=== PATIENT | female | born 1935 | race Caucasian/White ===

== ENCOUNTER 2017-01-21 13:01 | Observation (INO) | payer OTHER ==
[2017-01-21] MEDS ORDERED: ASPIRIN EC 325 MG TAB PO ONE ×2 (13:04→13:29)
[2017-01-21] MEDS ORDERED: diphenhydrAMINE 25 MG CAP PO ONE ×2 (13:04→13:28)
[2017-01-21] MEDS ORDERED: NS 1,000 ML IV ONE (13:04)
[2017-01-21] MEDS ORDERED: DIAZEPAM 5 MG TAB PO ONE (13:04)
[2017-01-21] MEDS ORDERED: FAMOTIDINE 20 MG TAB PO ONE (13:04)
[2017-01-21] MEDS ORDERED: DIAZEPAM 5 MG TAB ONE (13:29)
[2017-01-21] MEDS ORDERED: FAMOTIDINE 20 MG TAB ONE (13:29)
--- NOTE | 2017-01-21 13:30 | CPEKG ---
Heart Rate: 55 RR Interval: 1091 QRSD Interval: 82 QT Interval: 452 QTC Interval: 433 QRS [place]: -14 T Wave [place]: -5 EKG Severity - ABNORMAL ECG - EKG Impression: ACCELERATED JUNCTIONAL ESCAPE RHYTHM EKG Impression: BORDERLINE T ABNORMALITIES, DIFFUSE LEADS Electronically Signed By: Bahman Lomas 21-Jan-2017 21:39:35
--- NOTE | 2017-01-21 13:57 | CPEKG ---
Heart Rate: 57 RR Interval: 1053 QRSD Interval: 94 QT Interval: 464 QTC Interval: 452 QRS [place]: 3 T Wave [place]: 34 EKG Severity - ABNORMAL ECG - EKG Impression: ACCELERATED JUNCTIONAL ESCAPE RHYTHM EKG Impression: BORDERLINE T ABNORMALITIES, ANT-LAT LEADS Electronically Signed By: Bahman Lomas 21-Jan-2017 21:39:47
[2017-01-21 14:02] LABS: % IMMATURE GRANULYOCYTES 0.4 % (0.0-1.1); ABSOLUTE IMMATURE GRANULOCYTES 0.03 10^3/uL (0.00-0.10); ADD DIFF? NO; ADD MORPH? NO; ADD SCAN? NO; ATYPICAL LYMPHOCYTE FLAG 10 (0-99); FRAGMENT RBC FLAG 0 (0-99); HEMOGLOBIN 13.6 g/dL (12.6-16.3); LEFT SHIFT FLG 0 (0-99); LIPEMIA HEMOLYSIS FLAG 90 (0-99); MEAN CELL HEMOGLOBIN 30.1 pg (27.9-34.1); MEAN CELL HEMOGLOBIN CONCENTR. 34.9 g/dL (32.4-36.7); MEAN CELL VOLUME 86.3 fL (81.5-99.8); MEAN PLATELET VOLUME 9.7 fL (8.7-11.7); PLATELET CLUMPS FLAG 0 (0-99); PLATELET COUNT 260 10^3/uL (150-400); RED BLOOD CELL COUNT 4.52 10^6/uL (4.18-5.33); RED CELL DISTRIBUTION WIDTH 13.4 % (11.5-15.2)
[2017-01-21 14:17] LABS: ANION GAP 14 mEq/L (8-16); CALCIUM 9.9 mg/dL (8.5-10.4); CARBON DIOXIDE 21 mEq/l (22-31); CHLORIDE 108 mEq/L (97-110); CHOLESTEROL 193 mg/dL (140-220); CHOLESTEROL/HDL RATIO 3.45 RATIO (1.00-4.44); CREATININE 1.5 mg/dL (0.6-1.0); GLOMERULAR FILTRATION RATE 33; GLUCOSE 119 mg/dL (70-100); HIGH DENSITY LIPOPROTEIN 56 mg/dL (40-85); LDL/HDL RATIO 2.04 RATIO (1.00-3.22); LOW DENSITY LIPOPROTEIN 114 mg/dL (80-100); MAGNESIUM 1.6 mg/dL (1.6-2.3); NON-HIGH DENSITY LIPOPROTEIN 137 mg/dL (90-129); POTASSIUM 3.6 mEq/L (3.5-5.2); SODIUM 143 mEq/L (134-144); TRIGLYCERIDE 115 mg/dL (35-135); VERY LOW DENSITY LIPOPROTEINS 23 mg/dL (8-25)
[2017-01-21 14:18] LABS: INR 1.01 (0.83-1.16); PROTIME(PATIENT) 13.2 SEC (12.0-15.0)
[2017-01-21] MEDS ORDERED: fentaNYL 100 MCG/2 ML INJ ONE ×2 (15:37→16:30)
[2017-01-21] MEDS ORDERED: MIDAZOLAM 2 MG/2 ML VIAL ONE ×2 (15:37→16:42)
[2017-01-21] MEDS ORDERED: LIDOCAINE 1% 300 MG/30 ML SDV ONE (15:37)
[2017-01-21] MEDS ORDERED: IOPAMIDOL (ISOVUE-370) 150 ML BTL IV ONE (15:38)
[2017-01-21] MEDS ORDERED: BIVALIRUDIN 250 MG/5 ML VIAL IV ONE (16:13)
[2017-01-21] MEDS ORDERED: CLOPIDOGREL BISULFATE 75 MG TAB ONE (17:17)
[2017-01-21] MEDS ORDERED: NITROGLYCERIN 0.4 MG BTL SL PRN (17:23)
[2017-01-21] MEDS ORDERED: CLOPIDOGREL BISULFATE 75 MG TAB PO ONE (17:23)
[2017-01-21] MEDS ORDERED: TEMAZEPAM 15 MG CAP PO PRN (17:23)
[2017-01-21] MEDS ORDERED: ATROPINE SULFATE 1 MG/10 ML SYR IVP PRN (17:23)
[2017-01-21] MEDS ORDERED: ONDANSETRON 4 MG/2 ML VIAL IVP PRN (17:23)
[2017-01-21] MEDS ORDERED: NS 1,000 ML IV SCH (17:30)
--- NOTE | 2017-01-21 17:54 | CPEKG ---
Heart Rate: 48 RR Interval: 1250 P-R Interval: 217 QRSD Interval: 84 QT Interval: 484 QTC Interval: 433 P [place]: 0 QRS [place]: 10 T Wave [place]: 59 EKG Severity - BORDERLINE ECG - EKG Impression: SINUS BRADYCARDIA EKG Impression: ATRIAL PREMATURE COMPLEX EKG Impression: MINIMAL ST DEPRESSION, LATERAL LEADS EKG Impression: FIRST DEGREE AVB Electronically Signed By: Bahman Lomas 21-Jan-2017 21:40:30
[2017-01-21] MEDS ORDERED: CARVEDILOL 3.125 MG TAB PO SCH (18:00)
[2017-01-22 04:54] LABS: % IMMATURE GRANULYOCYTES 0.2 % (0.0-1.1); ABSOLUTE IMMATURE GRANULOCYTES 0.02 10^3/uL (0.00-0.10); ADD DIFF? NO; ADD MORPH? NO; ADD SCAN? NO; ATYPICAL LYMPHOCYTE FLAG 0 (0-99); FRAGMENT RBC FLAG 0 (0-99); HEMATOCRIT 34.6 % (38.0-47.0); LEFT SHIFT FLG 0 (0-99); LIPEMIA HEMOLYSIS FLAG 90 (0-99); MEAN CELL HEMOGLOBIN 29.9 pg (27.9-34.1); MEAN CELL HEMOGLOBIN CONCENTR. 34.7 g/dL (32.4-36.7); MEAN CELL VOLUME 86.1 fL (81.5-99.8); MEAN PLATELET VOLUME 9.9 fL (8.7-11.7); PLATELET CLUMPS FLAG 0 (0-99); PLATELET COUNT 227 10^3/uL (150-400); RED BLOOD CELL COUNT 4.02 10^6/uL (4.18-5.33); RED CELL DISTRIBUTION WIDTH 13.4 % (11.5-15.2)
[2017-01-22 05:06] LABS: ANION GAP 12 mEq/L (8-16); CALCIUM 9.7 mg/dL (8.5-10.4); CARBON DIOXIDE 24 mEq/l (22-31); CHLORIDE 105 mEq/L (97-110); CREATININE 1.3 mg/dL (0.6-1.0); GLOMERULAR FILTRATION RATE 39; GLUCOSE 120 mg/dL (70-100); POTASSIUM 3.5 mEq/L (3.5-5.2); SODIUM 141 mEq/L (134-144)
[2017-01-22 08:18] VITALS: BP 118/68; PULSE 53; RESP 17; TEMP 97.6; O2SAT 95
[2017-01-22] MEDS ORDERED: LEVOTHYROXINE 75 MCG TAB PO SCH (08:30)
[2017-01-22] MEDS ORDERED: PANTOPRAZOLE SODIUM 40 MG TAB PO SCH (09:00)
[2017-01-22] MEDS ORDERED: ASPIRIN EC 325 MG TAB PO SCH (09:00)
[2017-01-22] MEDS ORDERED: HYDROCHLOROTHIAZIDE 25 MG TAB PO SCH (09:00)
[2017-01-22] MEDS ORDERED: CLOPIDOGREL BISULFATE 75 MG TAB PO SCH (09:00)
[2017-01-22] MEDS ORDERED: ATORVASTATIN CALCIUM 20 MG TAB PO SCH (09:00)
[2017-01-22] MEDS ORDERED: ESCITALOPRAM OXALATE 10 MG TAB PO SCH (09:00)
[2017-01-22] MEDS ORDERED: METOPROLOL SUCCINATE XR 100 MG TAB PO SCH (09:00)
[2017-01-22] MEDS ORDERED: FAMOTIDINE 20 MG TAB PO SCH (09:00)
--- NOTE | 2017-01-22 09:27 | CPEKG ---
Heart Rate: 54 RR Interval: 1111 P-R Interval: 248 QRSD Interval: 76 QT Interval: 468 QTC Interval: 444 P [place]: -72 QRS [place]: -5 T Wave [place]: 29 EKG Severity - ABNORMAL ECG - EKG Impression: SINUS OR ECTOPIC ATRIAL RHYTHM EKG Impression: MULTIPLE ATRIAL PREMATURE COMPLEXES EKG Impression: FIRST DEGREE AV BLOCK EKG Impression: NONSPECIFIC T ABNORMALITIES, LATERAL LEADS Electronically Signed By: Bahman Lomas 22-Jan-2017 14:16:53
--- NOTE | 2017-01-22 11:50 | CPIP ---
[f rep st] INVASIVE CARDIAC PROCEDURE DATE OF PROCEDURE: 01/21/2017 PROCEDURE: 1. Coronary angiography. 2. Left ventricular end-diastolic pressure. 3. Stenting of OM1 coronary artery with Synergy drug-eluting stent. INDICATION: 1. Class 2-3 angina. 2. Abnormal exercise tolerance test that is intermediate risk. ACCESS: Patient was prepped and draped in sterile fashion. 1% lidocaine was used to anesthetize th e right inguinal region. A 6-Palestinian introducer sheath was placed selectively into the right common femoral artery via modified Seldinger technique. CORONARY ANGIOGRAPHY: A 6-[place]estinian JL4 was advanced to the left main coronary artery and images obtai mendy. The left main coronary artery bifurcated into LAD and circumflex coronary arteries. The left main coronary artery appeared normal. The left anterior descending coronary artery gave rise to 3 d iagonal branches. The left anterior descending coronary artery had mild diffuse disease throughout. There was no stenosis greater than 10% to 15%. The circumflex coronary artery was a moderate to l arge sized vessel. The circumflex coronary artery gave rise to 1 prominent OM branch. The circumfl ex coronary artery had mild luminal irregularities throughout. There was no stenosis greater than 1 0%. The first OM coronary artery had a single discrete 80% to 90% stenosis in the proximal segment. A 6-Palestinian JR4 was advanced to the right coronary artery and images obtained. The right coronary ar sobia was dominant. The right coronary artery had mild luminal irregularities throughout. There was no stenosis greater than 10%. LEFT VENTRICULAR END-DIASTOLIC PRESSURE: A 6-Palestinian pigtail catheter was advanced in the left ventr icle and pressure obtained. Left ventricular end-diastolic pressure was 20 mmHg. LEFT VENTRICULOGRAPHY: Not performed in an effort to spare contrast. PERCUTANEOUS CORONARY INTERVENTION OF THE OM1 CORONARY ARTERY: A 6-Palestinian JL4 was advanced to the l eft main coronary artery and images obtained. Angiography confirmed the presence of high-grade sten osis involving the proximal OM1 coronary artery. A Luge wire was placed in the distal vessel and po sition verified by angiography. A 2.0 x 15 Emerge balloon was then advanced and used to pre-dilate the lesion. Followup angiography demonstrated significant residual stenosis. Several attempts were made at passing a 2.25 x 16 Synergy drug-eluting stent across the lesion. These were unsuccessful secondary to inadequate wire support. A Kinetix wire was then advanced into the more distal portion of the OM1 coronary artery and the Luge wire withdrawn. A 2.25 x 16 Synergy drug-eluting stent was successfully placed across the lesion and deployed. Followup angiography demonstrated JOVANNA 3 flow and no residual stenosis. COMPLICATIONS: None. CONCLUSIONS: 1. Single-vessel coronary artery disease involving the OM1 coronary artery. 2. Status post successful percutaneous coronary intervention of the OM1 coronary artery using a Syn ergy drug-eluting stent. /[id number]/MODL
--- NOTE | 2017-01-22 22:53 | GDS ---
[f rep st] DISCHARGE SUMMARY DISCHARGE DIAGNOSES: 1. [place] [employer] anginal class 3 with new onset of unstable angina. 2. Abnormal treadmill stress test with ST elevation and ST depression. 3. Hypertension. 4. Diabetes, on diet control. 5. Obstructive lesion in the obtuse marginal, status post percutaneous transluminal coronary angiop lasty and stenting in this admission. 6. New diagnosis of obstructive coronary artery disease. PROCEDURES: Left heart catheterization due to new onset unstable angina. Found to have a normal-ap pearing left main, with LAD with mild diffuse irregularities. The circumflex is a large artery, giv en rise to one prominent obtuse marginal branch. The first obtuse marginal branch has an 80% to 90% stenosis in the proximal segment. This was treated with PTCA and stenting with a Synergy drug-elut ing stent. BRIEF HISTORY: Please see dictated H and P by Dr. Andrews for complete details. In brief, the patie nt is an 81-year-old female with a previous history of hypertension and type 2 diabetes mellitus, wh o had noted episodes of chest discomfort that were ill-defined. She was also noting worsening fatig ue. On her treadmill stress test, she had a highly abnormal stress test with ST elevation and depre ssion. The patient proceeded to a left heart catheterization on 01/21/2017 for further evaluation. On day of discharge, the patient denies any groin pain. HOSPITAL COURSE BY PROBLEM: 1. CAD, likely symptoms of chest pain or related to obstructive lesion identified in the principal OM. This was treated with PTCA and stenting. She will need dual anti-platelet therapy. She has be en started on clopidogrel and aspirin. 2. Dyslipidemia. LDL is 114. She has been started on atorvastatin 20 mg p.o. daily. She will req uire lipid panel in approximately 6 weeks. 3. Chronic kidney disease. She had recently stopped her losartan due to elevated creatinine. On d of discharge, her creatinine is 1.3. 4. Hypertension. Blood pressures are mostly controlled at this point due to some bradycardia. We will decrease her metoprolol succinate 50 mg p.o. daily. She is advised on home monitoring. RESULTS PENDING: None. PHYSICAL EXAM: VITAL SIGNS: On day of discharge, blood pressure 118/68, heart rate 53, respiration s 17, O2 saturation 95% on room air, temp of 97.6 degrees Fahrenheit. GENERAL: She is a pleasant fe male in no apparent distress. HEENT: Normocephalic, atraumatic. HEART: Regular rate and rhythm. LUNGS: Clear. ABDOMEN: Soft. Right groin site without ecchymosis or bruit. She has 2+ PT and D P pulses bilaterally. LABORATORY DATA: BMP with sodium 141, potassium 3.5, chloride 105, CO2 24, BUN 30, creatinine 1.3, glucose 120. CBC with WBC 8.2, hemoglobin 12, hematocrit 34.6, platelet count 227. Telemetry withi n normal limits. DISCHARGE MEDICATIONS: Please see med reconciliation for complete details. She is being discharged on her home Nexium, Lexapro, ranitidine, levothyroxine, hydrochlorothiazide. Her metoprolol dose h as been decreased to 50 mg p.o. daily. She has a new prescription for clopidogrel, atorvastatin. S he is to start aspirin 325 mg p.o. daily. Her ibuprofen is discontinued due to some renal insuffici ency. FOLLOWUP INSTRUCTIONS: 1. Groin precautions were reviewed. 2. Consider cardiac rehab. 3. Groin check in our office in 1 week's time. 4. Follow up with Dr. Andrews as scheduled. /[id number]/MODL
== END 2017-01-22 10:55 | disposition home or self-care (01) ==
LOC: FCATH 13:01 → F2W 20:01
PROVIDERS: ADMIT Internal Medicine Cardiovascular Disease; ATTEND Internal Medicine Interventional Cardiology
PROC: 027034Z Dilation of Coronary Artery, One Artery with Drug-eluting Intraluminal Device, Percutaneous Approach (ICD-10-PCS; principal; 2017-01-21)
PROC: B2151ZZ Fluoroscopy of Left Heart using Low Osmolar Contrast (ICD-10-PCS; principal; 2017-01-21)
PROC: B2111ZZ Fluoroscopy of Multiple Coronary Arteries using Low Osmolar Contrast (ICD-10-PCS; principal; 2017-01-21)
PROC: 4A023N7 Measurement of Cardiac Sampling and Pressure, Left Heart, Percutaneous Approach (ICD-10-PCS; principal; 2017-01-21)
DX: I25.110 Atherosclerotic heart disease of native coronary artery with unstable angina pectoris (principal); R94.39 Abnormal result of other cardiovascular function study; I12.9 Hypertensive chronic kidney disease with stage 1 through stage 4 chronic kidney disease, or unspecified chronic kidney disease; E11.9 Type 2 diabetes mellitus without complications; N18.9 Chronic kidney disease, unspecified; E78.00 Pure hypercholesterolemia, unspecified
CPT/HCPCS: 93005; 93458; C1725; C1769; C1874; C1887; C9600; G0378; J0583; J1644; J2250; J3010; Q9967; J0461

== ENCOUNTER → 2017-09-01 | Outpatient (CLI) | payer OTHER | LOC: CIMAGING 14:08 → EDSTATUS 14:11 → CIMAGING 14:12 | PROVIDERS: ATTEND Family Medicine | DX: M51.36 Other intervertebral disc degeneration, lumbar region (principal); M79.604 Pain in right leg; M79.605 Pain in left leg | CPT/HCPCS: 72100-PO ==